=== PATIENT | male | born 1985 | race Two or more races ===

== ENCOUNTER 2022-01-11 00:30 | Emergency (ER) | payer SELFPAY ==
[2022-01-11] MEDS ORDERED: Lactated Ringers 1,000 ML IV ONE (02:40)
[2022-01-11] MEDS ORDERED: Ondansetron 4 MG/2 ML SDV IVPUSH ONE (02:41)
== END 2022-01-11 04:12 | disposition home or self-care (01) ==
LOC: JD.ED 00:30
DX: R11.2 Nausea with vomiting, unspecified (principal); I10 Essential (primary) hypertension
CPT/HCPCS: 96361; 96374; 99283; J2405; J7120; 99282